=== PATIENT | female | born 1960 | race Caucasian/White ===

== ENCOUNTER → 2020-06-07 11:22 | Outpatient (CLI) | payer BC, SELFPAY ==
--- NOTE | ~2020-06-07 | MM_ITS ---
EXAMINATION: MM screening [facility] BI w alexandru HISTORY: Screening mammogram TECHNIQUE: Craniocaudal and mediolateral oblique 3-D tomosynthesis images were obtained and synthetic 2-D images were generated. CAD analysis was submitted and interpreted. COMPARISON: 05/06/2019, 01/06/2018, 10/09/2016 BREAST PARENCHYMAL COMPOSITION: There are scattered areas of fibroglandular density. FINDINGS: RIGHT BREAST: A mass is present in the middle third of the outer breast 5 cm from the nipple. No susp icious calcification is identified. LEFT BREAST: There is no evidence of suspicious mass, calcification, or architectural distortion to s uggest malignancy. There has been no significant interval change. IMPRESSION: 1. Right breast mass. 2. Additional mammographic views and possible breast ultrasound are recommended. BI-RADS Category 0: Incomplete: Needs additional imaging evaluation. Reviewed, dictated and finalized at location A. IMPRESSION: 1. Right breast mass. 2. Additional mammographic views and possible breast ultrasound are recommended . BI-RADS Category 0: Incomplete: Needs additional imaging evaluation.
== END ==
PROVIDERS: Visit Provider Nurse Practitioner
DX: Z12.31 Encounter for screening mammogram for malignant neoplasm of breast (principal); R92.8 Other abnormal and inconclusive findings on diagnostic imaging of breast
CPT/HCPCS: 77063; 77067

== ENCOUNTER → 2020-06-20 09:54 | Outpatient (CLI) | payer BC, SELFPAY ==
--- NOTE | ~2020-06-20 | MMUS_ITS ---
EXAMINATION: MM diagnostic mammo unilat RT, US breast RT limited HISTORY: Mammographic mass reported in middle third of outer breast TECHNIQUE: Additional 3-D tomosynthesis images of the right breast were performed and synthetic 2-D i mages were generated. CAD analysis was submitted and interpreted. High resolution targeted right m[address] st ultrasound was performed. COMPARISON: 06/07/2020 bilateral digital screening mammogram FINDINGS: MAMMOGRAPHIC FINDINGS: There is a circumscribed 4 mm low-density opacity with benign mammographic features in the lower oute r quadrant of the right breast. ULTRASOUND: A 4 mm sonolucency is confirmed at 8:00 3 cm from the nipple. This is consistent with a simple cyst. IMPRESSION: 1. Benign 4 mm cyst at 8:00 3 cm from nipple 2. No mammographic evidence of malignancy 3. Routine mammographic screening is recommended. BI-RADS Category 2: Benign finding(s). Reviewed, dictated and finalized at location A. IMPRESSION: 1. Benign 4 mm cyst at 8:00 3 cm from nipple 2. No mammographic evidence of malignancy 3. Routine mammographic screening is recommended. BI-RADS Category 2: Benign finding(s).
== END ==
PROVIDERS: PCP Internal Medicine Infectious Disease; Visit Provider Obstetrics & Gynecology Gynecology
DX: R92.8 Other abnormal and inconclusive findings on diagnostic imaging of breast (principal)
CPT/HCPCS: 76642; 77065

== ENCOUNTER → 2021-06-13 13:36 | Outpatient (CLI) | payer BC, SELFPAY ==
--- NOTE | ~2021-06-13 | DEXA_ITS ---
Bone Density Report Name: Susan Gamez Age: 61 Sex: Female Ethnicity: White Date of : 1960 Indication: osteopenia; height loss; asthma or emphysema; hysterectomy; postmenopausal Referring Provider: Bailey, Luciana Study: Bone densitometry was performed. Exam Date: June 13, 2021 Accession number: [id number] Bone Density: Region BMD T-score Z-score Classification AP Spine (L1-L4) 0.890 -1.4 0.2 Osteopenia Femoral Neck (Left) 0.624 -2.0 -0.6 Osteopenia Total Hip (Left) 0.721 -1.8 -0.7 Osteopenia Femoral Neck (Right) 0.614 -2.1 -0.7 Osteopenia Total Hip (Right) 0.730 -1.7 -0.6 Osteopenia Total Hip Mean 0.726 -1.8 -0.7 Osteopenia World Health Organization criteria for BMD impression classify patients as: Normal (T-score at or above -1.0), Osteopenia (T-score between -1.0 and -2.5), or Osteoporosis (T-score at or below -2.5). 10-year Fracture Risk(1): Major Osteoporotic Fracture 10% Hip Fracture 1.4% Reported Risk Factors: [place] (), Neck BMD=0.614, BMI=28.5 (1) FRAX(R) Version 3.08. Fracture probability calculated for an untreated patient. Fracture probability may be lower if the patient has received treatment. Previous Exams: Region Exam Age BMD T-score BMD Change BMD Change Date g/cm2 vs Baseline vs Previous AP Spine(L1-L4) 06/13/2021 61 0.890 -1.4 0.101* -0.003 05/06/2019 58 0.894 -1.4 0.105* 0.105* 10/09/2016 56 0.789 -2.3 Total Hip(Left) 06/13/2021 61 0.721 -1.8 0.041* 0.030* 05/06/2019 58 0.691 -2.1 0.011 0.011 10/09/2016 56 0.681 -2.1 Total Hip(Right) 06/13/2021 61 0.730 -1.7 0.051* 0.032* 05/06/2019 58 0.698 -2.0 0.019 0.019 10/09/2016 56 0.679 -2.2 *Denotes significance at 95% confidence level, LSC for AP Spine = 0.022 g/cm2, LSC for Total Hip = 0.027 g/cm2 Clinical Information Provided by Patient: Has used the following medications: Vitamin D, Calcium Has the following medical conditions: Asthma or Emphysema, Hysterectomy, COPD Patient maximum height was 62 Menopause Age: 45 No regular weight bearing exercise Does not regularly consume dairy products Drinks caffeinated beverages Onset of menses at age 11 Number of children 6 Impression: The patient has low bone mass, based on the Right Femoral Neck T-score. The patient has an estimated ten-year
--- NOTE | ~2021-06-13 | MM_ITS ---
EXAMINATION: MM screening [facility] BI w alexandru HISTORY: Screening TECHNIQUE: Craniocaudal and mediolateral oblique 3-D tomosynthesis images were obtained and synthetic 2-D images were generated. CAD analysis was submitted and interpreted. COMPARISON: Comparison to multiple prior studies sequentially, with oldest reviewed study dated 09/24. BREAST PARENCHYMAL COMPOSITION: There are scattered areas of fibroglandular density. FINDINGS: Stable benign right breast mass, mid outer aspect, previously described as cysts by ultraso und. There is no evidence of suspicious mass, calcification, or architectural distortion to suggest m alignancy in either breast. There has been no suspicious interval change. IMPRESSION: 1. No mammographic evidence of malignancy. 2. Recommend routine screening mammography in one year. BI-RADS Category 2: Benign finding(s). Reviewed, dictated and finalized at location A.
== END ==
PROVIDERS: PCP Internal Medicine Infectious Disease; Visit Provider Nurse Practitioner
DX: Z12.31 Encounter for screening mammogram for malignant neoplasm of breast (principal); M85.88 Other specified disorders of bone density and structure, other site; M85.851 Other specified disorders of bone density and structure, right thigh; M85.852 Other specified disorders of bone density and structure, left thigh
CPT/HCPCS: 77063; 77067; 77080

== ENCOUNTER → 2022-07-08 12:29 | Outpatient (CLI) | payer OTHER, SELFPAY ==
--- NOTE | ~2022-07-08 | MM_ITS ---
EXAMINATION: MM screening [facility] BI w alexandru HISTORY: Screening mammogram TECHNIQUE: Craniocaudal and mediolateral oblique 3-D tomosynthesis images were obtained and synthetic 2-D images were generated. CAD analysis was submitted and interpreted. COMPARISON: 06/13/2021 bilateral screening mammogram 06/20/2020 diagnostic right mammogram and limited right breast ultrasound 06/07/2020 bilateral screening mammogram. BREAST PARENCHYMAL COMPOSITION: The breasts are almost entirely fatty. FINDINGS: There is no evidence of suspicious mass, calcification, or architectural distortion to sugg est malignancy in either breast. There has been no suspicious interval change. IMPRESSION: 1. No mammographic evidence of malignancy. 2. Recommend routine screening mammography in one year. BI-RADS Category 1: Negative Reviewed, dictated and finalized at location A.
== END ==
PROVIDERS: PCP Internal Medicine Infectious Disease; Visit Provider Nurse Practitioner
DX: Z12.31 Encounter for screening mammogram for malignant neoplasm of breast (principal)
CPT/HCPCS: 77063; 77067

== ENCOUNTER → 2023-08-13 11:02 | Outpatient (CLI) | payer MEDICARE, OTHER, SELFPAY ==
--- NOTE | ~2023-08-13 | DEXA_ITS ---
Bone Density Report Name: JACEK ROBLES Age: 63 Sex: Female Ethnicity: White Date of : 1960 Indication: osteopenia; height loss; asthma or emphysema; hysterectomy; postmenopausal Referring Provider: Bailey, Luciana Study: Bone densitometry was performed. Exam Date: August 13, 2023 Accession number: [id number] Bone Density: Region BMD T-score Z-score Classification AP Spine (L1-L4) 0.897 -1.4 0.4 Osteopenia Femoral Neck (Left) 0.602 -2.2 -0.7 Osteopenia Total Hip (Left) 0.733 -1.7 -0.5 Osteopenia Femoral Neck (Right) 0.628 -2.0 -0.5 Osteopenia Total Hip (Right) 0.719 -1.8 -0.6 Osteopenia Total Hip Mean 0.726 -1.8 -0.6 Osteopenia World Health Organization criteria for BMD impression classify patients as: Normal (T-score at or above -1.0), Osteopenia (T-score between -1.0 and -2.5), or Osteoporosis (T-score at or below -2.5). 10-year Fracture Risk(1): Major Osteoporotic Fracture 11% Hip Fracture 1.8% Reported Risk Factors: [place] (), Neck BMD=0.602, BMI=30.4 (1) FRAX(R) Version 3.08. Fracture probability calculated for an untreated patient. Fracture probability may be lower if the patient has received treatment. Previous Exams: Region Exam Age BMD T-score BMD Change BMD Change Date g/cm2 vs Baseline vs Previous AP Spine(L1-L4) 08/13/2023 63 0.897 -1.4 0.108* 0.006 06/13/2021 61 0.890 -1.4 0.101* -0.003 05/06/2019 58 0.894 -1.4 0.105* 0.105* 10/09/2016 56 0.789 -2.3 Total Hip(Left) 08/13/2023 63 0.733 -1.7 0.052* 0.011 06/13/2021 61 0.721 -1.8 0.041* 0.030* 05/06/2019 58 0.691 -2.1 0.011 0.011 10/09/2016 56 0.681 -2.1 Total Hip(Right) 08/13/2023 63 0.719 -1.8 0.040* -0.012 06/13/2021 61 0.730 -1.7 0.051* 0.032* 05/06/2019 58 0.698 -2.0 0.019 0.019 10/09/2016 56 0.679 -2.2 *Denotes significance at 95% confidence level, LSC for AP Spine = 0.022 g/cm2, LSC for Total Hip = 0.027 g/cm2 Clinical Information Provided by Patient: Has used the following medications: Calcium Has the following medical conditions: Asthma or Emphysema, Hysterectomy, COPD Patient maximum height was 62.5 Menopause Age: 45 No regular weight bearing exercise Does not regularly consume dairy products Drinks caffeinated beverages Onset of menses at age 11 Number of children 6
--- NOTE | ~2023-08-13 | MM_ITS ---
EXAMINATION: MM screening [facility] BI w alexandru HISTORY: Screening TECHNIQUE: Craniocaudal and mediolateral oblique 3-D tomosynthesis images were obtained and synthetic 2-D images were generated. CAD analysis was submitted and interpreted. COMPARISON: Comparison to multiple prior studies sequentially, with oldest reviewed study dated 01/06. BREAST PARENCHYMAL COMPOSITION: There are scattered areas of fibroglandular density. FINDINGS: There is no evidence of suspicious mass, calcification, or architectural distortion to sugg est malignancy in either breast. There has been no suspicious interval change. IMPRESSION: 1. No mammographic evidence of malignancy. 2. Recommend routine screening mammography in one year. BI-RADS Category 1: Negative Reviewed, dictated and finalized at location A.
== END ==
PROVIDERS: PCP Internal Medicine Infectious Disease; Visit Provider Nurse Practitioner
DX: Z12.31 Encounter for screening mammogram for malignant neoplasm of breast (principal); Z13.820 Encounter for screening for osteoporosis; M85.88 Other specified disorders of bone density and structure, other site; M85.852 Other specified disorders of bone density and structure, left thigh; M85.851 Other specified disorders of bone density and structure, right thigh
CPT/HCPCS: 77063; 77067; 77080

== ENCOUNTER 2024-08-16 11:22 | Outpatient (CLI) | payer MEDICARE, OTHER, SELFPAY ==
--- NOTE | ~2024-08-16 | MM_ITS ---
EXAMINATION: MM screening [facility] BI w alexandru HISTORY: Screening TECHNIQUE: Craniocaudal and mediolateral oblique 3-D tomosynthesis images were obtained and synthetic 2-D images were generated. CAD analysis was submitted and interpreted. COMPARISON: Comparison to multiple prior studies sequentially, with oldest reviewed study dated 05/06. BREAST PARENCHYMAL COMPOSITION: Not dense: There are scattered areas of fibroglandular density. FINDINGS: There is no evidence of suspicious mass, calcification, or architectural distortion to sugg est malignancy in either breast. There has been no suspicious interval change. IMPRESSION: 1. No mammographic evidence of malignancy. 2. Recommend routine screening mammography in one year. BI-RADS Category 1: Negative Reviewed, dictated and finalized at location B.
== END 2024-08-16 11:23 | disposition home or self-care (01) ==
LOC: MICIMG 11:23
PROVIDERS: PCP Internal Medicine Infectious Disease; Visit Provider Nurse Practitioner
DX: Z12.31 Encounter for screening mammogram for malignant neoplasm of breast (principal)
CPT/HCPCS: 77063; 77067

== ENCOUNTER 2024-08-25 01:19 | Day surgery (SDC) | payer MEDICARE, OTHER, SELFPAY ==
[2024-08-03 12:47] VITALS: BMI 30.2
--- NOTE | 2024-08-23 12:28 | PM.IMHP ---
H&P: HPI History of Present Illness Date/Time: 08/23/24 12:28 Chief Complaint: patient with a family history of colorectal cancer , here for screening in a high risk patient. [facility] Past Medical History Medical History (Updated 08/25/24 @ 08:41 by Bob Moody MD) COPD (chronic obstructive pulmonary disease) HTN (hypertension) Overweight Surgical History Surgical History (Updated 08/25/24 @ 07:00 by Malachi Olsen MD) S/P cervical spinal fusion Social History Social History Years smoked: 35 Smoking status: Former smoker Tobacco type: cigarettes Alcohol intake: current Drinks per week: 7 Alcohol use details: ONE GLASS WINE DAILY Substance use: never Substance use type: does not use Living arrangements: with family Spiritual care concerns: No Meds Home Medications and Allergies Home Medications Medication Instructions Recorded Confirmed Type amlodipine 5 mg tablet 5 mg PO DAILY 08/03/24 08/25/24 History cetirizine 10 mg tablet (Zyrtec) 10 mg PO DAILY 08/03/24 08/25/24 History fluticasone 250 mcg-salmeterol 50 1 inh inhalation BID 08/03/24 08/25/24 History mcg/dose blistr powdr for inhalation (Wixela Inhub) fluticasone propionate 50 1 spray intranasal BID 08/03/24 08/25/24 History mcg/actuation nasal spray,suspension meloxicam 15 mg tablet 15 mg PO DAILY 08/03/24 08/25/24 History sertraline 100 mg tablet 100 mg PO DAILY 08/03/24 08/25/24 History tiotropium bromide 18 mcg capsule 1 cap inhalation DAILY 08/03/24 08/25/24 History with inhalation device (Spiriva with HandiHaler) Allergies Allergy/AdvReac Type Severity Reaction Status Date / Time Penicillins Allergy Severe HIVES Verified 08/25/24 06:21 codeine Allergy Intermediate NAUSEA Verified 08/25/24 06:21 AFFECTS VISION meperidine Allergy Intermediate NAUSEA Verified 08/25/24 06:21 AFFECTS VISION morphine Allergy Mild Itching Verified 08/25/24 06:21 tramadol Allergy Mild NAUSE Verified 08/25/24 06:21 AFFECTS VISION lactose AdvReac Intermediate Gastrointestinal Verified 08/25/24 06:21 Upset Exam Narrative: Within normal limits Assessment and Plan Assessment and plan (1) Screening for malignant neoplasm of colon: Code(s): Z12.11 - Encounter for screening for malignant neoplasm of colon Status: Acute Plan Patient deemed a good candidate for colonoscopy , will proceed.
--- NOTE | 2024-08-24 17:01 | P.HP_ITS ---
H&P: HPI History of Present Illness Date/Time: 08/24/24 17:01 [facility] Past Medical History Medical History (Updated 08/25/24 @ 07:00 by Malachi Olsen MD) COPD (chronic obstructive pulmonary disease) HTN (hypertension) Overweight Surgical History Surgical History (Updated 08/25/24 @ 07:00 by Malachi Olsen MD) S/P cervical spinal fusion Social History Social History Years smoked: 35 Smoking status: Former smoker Tobacco type: cigarettes Alcohol intake: current Drinks per week: 7 Alcohol use details: ONE GLASS WINE DAILY Substance use: never Substance use type: does not use Living arrangements: with family Spiritual care concerns: No Meds Home Medications and Allergies Home Medications Medication Instructions Recorded Confirmed Type amlodipine 5 mg tablet 5 mg PO DAILY 08/03/24 08/25/24 History cetirizine 10 mg tablet (Zyrtec) 10 mg PO DAILY 08/03/24 08/25/24 History fluticasone 250 mcg-salmeterol 50 1 inh inhalation BID 08/03/24 08/25/24 History mcg/dose blistr powdr for inhalation (Wixela Inhub) fluticasone propionate 50 1 spray intranasal BID 08/03/24 08/25/24 History mcg/actuation nasal spray,suspension meloxicam 15 mg tablet 15 mg PO DAILY 08/03/24 08/25/24 History sertraline 100 mg tablet 100 mg PO DAILY 08/03/24 08/25/24 History tiotropium bromide 18 mcg capsule 1 cap inhalation DAILY 08/03/24 08/25/24 History with inhalation device (Spiriva with HandiHaler) Allergies Allergy/AdvReac Type Severity Reaction Status Date / Time Penicillins Allergy Severe HIVES Verified 08/25/24 06:21 codeine Allergy Intermediate NAUSEA Verified 08/25/24 06:21 AFFECTS VISION meperidine Allergy Intermediate NAUSEA Verified 08/25/24 06:21 AFFECTS VISION morphine Allergy Mild Itching Verified 08/25/24 06:21 tramadol Allergy Mild NAUSE Verified 08/25/24 06:21 AFFECTS VISION lactose AdvReac Intermediate Gastrointestinal Verified 08/25/24 06:21 Upset
[2024-08-25 06:15] VITALS: BP 133/74; PULSE 62; RESP 16; TEMP 36.1; O2SAT 99
[2024-08-25 06:24] VITALS: BMI 29.8
[2024-08-25] MEDS: LACTATED RINGERS 1,000 ML 150 ML IV CONT (06:35)
--- NOTE | 2024-08-25 07:00 | P.PNAN_ITS ---
Anes - Initial Pre Proc Eval Procedure: Operation Date: 08/25/24 07:30 Proposed Procedures p Screening Colonoscopy - Bob Moody MD Date/Time: 08/25/24 07:00 Surgeon: Bob Moody MD Pre Op Diagnosis: family history of cancer Patient Data Age: 64 Gender: F Height: 1.57 m Weight: 74.1 kg Allergies Allergy/AdvReac Type Severity Reaction Status Date / Time Penicillins Allergy Severe HIVES Verified 08/25/24 06:21 codeine Allergy Intermediate NAUSEA Verified 08/25/24 06:21 AFFECTS VISION meperidine Allergy Intermediate NAUSEA Verified 08/25/24 06:21 AFFECTS VISION morphine Allergy Mild Itching Verified 08/25/24 06:21 tramadol Allergy Mild NAUSE Verified 08/25/24 06:21 AFFECTS VISION lactose AdvReac Intermediate Gastrointestinal Verified 08/25/24 06:21 Upset Home Medications Medication Instructions Recorded Confirmed Type amlodipine 5 mg tablet 5 mg PO DAILY 08/03/24 08/25/24 History cetirizine 10 mg tablet (Zyrtec) 10 mg PO DAILY 08/03/24 08/25/24 History fluticasone 250 mcg-salmeterol 50 1 inh inhalation BID 08/03/24 08/25/24 History mcg/dose blistr powdr for inhalation (Wixela Inhub) fluticasone propionate 50 1 spray intranasal BID 08/03/24 08/25/24 History mcg/actuation nasal spray,suspension meloxicam 15 mg tablet 15 mg PO DAILY 08/03/24 08/25/24 History sertraline 100 mg tablet 100 mg PO DAILY 08/03/24 08/25/24 History tiotropium bromide 18 mcg capsule 1 cap inhalation DAILY 08/03/24 08/25/24 History with inhalation device (Spiriva with HandiHaler) Patient hx anesthesia problems: none Family hx anesthesia problems: none Results Review: All pre-operative results and documents have been reviewed as part of the pre- operative evaluation. [facility] Past Medical History Medical History (Updated 08/25/24 @ 07:00 by Malachi Olsen MD) COPD (chronic obstructive pulmonary disease) HTN (hypertension) Overweight Surgical History Surgical History (Updated 08/25/24 @ 07:00 by Malachi Olsen MD) S/P cervical spinal fusion Social History Social History Years smoked: 35 Smoking status: Former smoker Tobacco type: cigarettes Alcohol intake: current Drinks per week: 7 Alcohol use details: ONE GLASS WINE DAILY Substance use: never Substance use type: does not use Living arrangements: with family Spiritual care concerns: No Anes - Eval Final PreProcedure Day of Procedure 08/25/24 07:00 Patient weight: overweight Heart: regular rate and rhythm Lungs: clear to auscultation Airway: Mallampati scale class II Neurological: alert and oriented Last oral intake: >/= 8 hours ASA classification: III Emergent: no Anesthetic plan: proceed Anesthesia type and monitoring: general GIVS and standard monitoring Results Review: All pre-operative results and documents have been reviewed as part of the pre- operative evaluation. Informed Consent: The patient's anesthetic plan and its attendant risks and benefits were discussed with the patient/family/POA. Questions were solicited and answers provided to the satisfaction of the patient/family/POA.
--- NOTE | 2024-08-25 07:26 | P.HP_ITS ---
H&P: HPI History of Present Illness Date/Time: 08/25/24 07:26 Chief Complaint: Patient with that family history of colorectal cancer, her father of it many years ago. She has had already 2 colonoscopies, and there found polyps. This is her screening colonoscopy for high risk patient. [facility] Past Medical History Medical History (Updated 08/25/24 @ 07:00 by Malachi Olsen MD) COPD (chronic obstructive pulmonary disease) HTN (hypertension) Overweight Surgical History Surgical History (Updated 08/25/24 @ 07:00 by Malachi Olsen MD) S/P cervical spinal fusion Social History Social History Years smoked: 35 Smoking status: Former smoker Tobacco type: cigarettes Alcohol intake: current Drinks per week: 7 Alcohol use details: ONE GLASS WINE DAILY Substance use: never Substance use type: does not use Living arrangements: with family Spiritual care concerns: No Meds Home Medications and Allergies Home Medications Medication Instructions Recorded Confirmed Type amlodipine 5 mg tablet 5 mg PO DAILY 08/03/24 08/25/24 History cetirizine 10 mg tablet (Zyrtec) 10 mg PO DAILY 08/03/24 08/25/24 History fluticasone 250 mcg-salmeterol 50 1 inh inhalation BID 08/03/24 08/25/24 History mcg/dose blistr powdr for inhalation (Wixela Inhub) fluticasone propionate 50 1 spray intranasal BID 08/03/24 08/25/24 History mcg/actuation nasal spray,suspension meloxicam 15 mg tablet 15 mg PO DAILY 08/03/24 08/25/24 History sertraline 100 mg tablet 100 mg PO DAILY 08/03/24 08/25/24 History tiotropium bromide 18 mcg capsule 1 cap inhalation DAILY 08/03/24 08/25/24 History with inhalation device (Spiriva with HandiHaler) Allergies Allergy/AdvReac Type Severity Reaction Status Date / Time Penicillins Allergy Severe HIVES Verified 08/25/24 06:21 codeine Allergy Intermediate NAUSEA Verified 08/25/24 06:21 AFFECTS VISION meperidine Allergy Intermediate NAUSEA Verified 08/25/24 06:21 AFFECTS VISION morphine Allergy Mild Itching Verified 08/25/24 06:21 tramadol Allergy Mild NAUSE Verified 08/25/24 06:21 AFFECTS VISION lactose AdvReac Intermediate Gastrointestinal Verified 08/25/24 06:21 Upset Exam Narrative: within normal limits Assessment and Plan Assessment and plan Plan patient deemed a good candidate for colonoscopy, will proceed
[2024-08-25 07:50] VITALS: BP 101/65; PULSE 68; RESP 23; O2SAT 95
[2024-08-25 08:00] VITALS: BP 118/67; PULSE 61; RESP 14; O2SAT 96
[2024-08-25 08:10] VITALS: BP 139/86; PULSE 57; RESP 20; O2SAT 100
== END 2024-08-25 08:27 | disposition home or self-care (01) ==
PROVIDERS: PCP Internal Medicine Infectious Disease; Visit Provider Internal Medicine Gastroenterology
PROC: 0DJD8ZZ Inspection of Lower Intestinal Tract, Via Natural or Artificial Opening Endoscopic (ICD-10-PCS; CPT 45378; principal; 2024-08-25 07:30)
DX: Z12.11 Encounter for screening for malignant neoplasm of colon (principal); K57.30 Diverticulosis of large intestine without perforation or abscess without bleeding; I10 Essential (primary) hypertension; J44.9 Chronic obstructive pulmonary disease, unspecified; Z79.51 Long term (current) use of inhaled steroids; Z98.890 Other specified postprocedural states; Z98.1 Arthrodesis status; Z87.891 Personal history of nicotine dependence; Z80.0 Family history of malignant neoplasm of digestive organs
CPT/HCPCS: G0105; J2003; J2704; J7120

== ENCOUNTER 2025-08-18 12:54 | Outpatient (CLI) | payer MEDICARE, OTHER, SELFPAY ==
--- NOTE | ~2025-08-18 | MM_ITS ---
EXAMINATION: MM screening [facility] BI w alexandru HISTORY: Screening TECHNIQUE: Craniocaudal and mediolateral oblique 3-D tomosynthesis images were obtained and synthetic 2-D images were generated. CAD analysis was submitted and interpreted. COMPARISON: 08/13/2023 BREAST PARENCHYMAL COMPOSITION: Not Dense: The breasts are almost entirely fatty. FINDINGS: There is no evidence of suspicious mass, calcification, or architectural distortion to suggest malignancy in either breast. [There has been no significant interval change. IMPRESSION: 1. No mammographic evidence of malignancy. Recommend routine screening mammography in one year. BI-RADS Category 1: Negative Reviewed, dictated, and finalized at Location A. Reviewed, dictated and finalized at location Q. IMPRESSION: 1. No mammographic evidence of malignancy. Recommend routine screening mammogra phy in one year. BI-RADS Category 1: Negative
== END 2025-08-18 12:55 | disposition home or self-care (01) ==
PROVIDERS: PCP Obstetrics & Gynecology Gynecology; Visit Provider Internal Medicine Infectious Disease
DX: Z12.31 Encounter for screening mammogram for malignant neoplasm of breast (principal)
CPT/HCPCS: 77063; 77067

== ENCOUNTER 2025-09-26 12:36 | Outpatient (CLI) | payer MEDICARE, OTHER, SELFPAY ==
--- NOTE | ~2025-09-26 | DEXA_ITS ---
Bone Density Report Name: JACEK ARAGON Age: 65 Sex: Female Ethnicity: White Date of : 1960 Indication: osteopenia; height loss; inflammatory bowel disease; hysterectomy; Referring Provider: VIVI STILL Study: Bone densitometry was performed. Exam Date: September 26, 2025 Accession number: [id number] Bone Density: Region BMD T-score Z-score Classification AP Spine(L1-L4) 0.841 -1.9 0.1 Osteopenia Femoral Neck (Left) 0.580 -2.4 -0.8 Osteopenia Total Hip (Left) 0.708 -1.9 -0.6 Osteopenia Femoral Neck (Right) 0.607 -2.2 -0.5 Osteopenia Total Hip (Right) 0.717 -1.8 -0.5 Osteopenia Total Hip Mean 0.713 -1.9 -0.6 Osteopenia World Health Organization criteria for BMD impression classify patients as: Normal (T-score at or above -1.0), Osteopenia (T-score between -1.0 and -2.5), or Osteoporosis (T-score at or below -2.5). 10-year Fracture Risk(1): Major Osteoporotic Fracture 13% Hip Fracture 2.5% Reported Risk Factors: [place] (), Neck BMD=0.580, BMI=30.4 (1) FRAX(R) Version 3.08. Fracture probability calculated for an untreated patient. Fracture probability may be lower if the patient has received treatment. Previous Exams: -- Region Exam Age BMD T-score BMD Change BMD Change Date g/cm2 vs Baseline vs Previous -- AP Spine (L1-L4) 09/26/2025 65 0.841 -1.9 6.6%* -6.2%* 08/13/2023 63 0.897 -1.4 13.7%* 0.7% 06/13/2021 61 0.890 -1.4 12.9%* -0.4% 05/06/2019 58 0.894 -1.4 13.3%* 13.3%* 10/09/2016 56 0.789 -2.3 Total Hip(Left) 09/26/2025 65 0.708 -1.9 4.0%* -3.3% 08/13/2023 63 0.733 -1.7 7.6%* 1.6% 06/13/2021 61 0.721 -1.8 6.0%* 4.3%* 05/06/2019 58 0.691 -2.1 1.6% 1.6% 10/09/2016 56 0.681 -2.1 Total Hip(Right) 09/26/2025 65 0.717 -1.8 5.6%* -0.2% 08/13/2023 63 0.719 -1.8 5.8%* -1.6% 06/13/2021 61 0.730 -1.7 7.5%* 4.6%* 05/06/2019 58 0.698 -2.0 2.8% 2.8% 10/09/2016 56 0.679 -2.2 -- *Denotes significance at 95% confidence level, LSC for AP Spine = 0.022 g/cm2, LSC for Total Hip = 0.027 g/cm2 Clinical Information Provided by Patient: Has used the following medications: Vitamin D Has the following medical conditions: Inflammatory bowel diseases, Hysterectomy Patient maximum height was 63 Menopause Age: 45 No regular weight bearing exercise Does not regularly consume dairy products Drinks caffeinated beverages Onset of menses at age 10 Number of children 6 Impression: The patient has low bone mass, based on the Left Femoral Neck T-score. The patient has an estimated ten-year risk of hip fracture of 2.5% and an estimated ten-year risk of major fracture of 13%, based on the WHO FRAX algorithm. The BMD for the AP Spine (L1-L4) decreased, changing by -6.2% since the last DXA exam. Discussion: BONE DENSITY IS LOW AT ONE OR MORE SKELETAL SITES. This patient's lowest T-score is low at one or more skeletal sites. It meets the World Health Organization's (WHO) criteria for ?low bone mass? (T-score between -1.0 and -2.5). The patient's 10-year risk of fracture as calculated by FRAX is less than the threshold where pharmacological therapy is recommended by the National Osteoporosis Foundation (NOF). However, all treatment decisions require clinical judgment and consideration of individual patient factors, including patient preferences, comorbidities, previous drug use, risk factors not captured in the FRAX model (e.g., frailty, falls, vitamin D deficiency, increased bone turnover, interval significant decline in bone density) and possible under or overestimation of fracture risk by FRAX. The patient should follow a healthful lifestyle (good nutrition with adequate calcium and vitamin D, and appropriate weight-bearing exercise). Follow-Up: Consider repeating this study in 2 years to reassess this patient's status, or sooner if there is some new clinical indication. Reported by: NATHANIEL on 09/26/2025 12:58:00 PM. Reviewed, dictated and finalized at location A.
== END 2025-09-26 12:37 | disposition home or self-care (01) ==
PROVIDERS: PCP Internal Medicine Infectious Disease; Visit Provider Obstetrics & Gynecology Gynecology
DX: Z78.0 Asymptomatic menopausal state (principal); M85.88 Other specified disorders of bone density and structure, other site; M85.852 Other specified disorders of bone density and structure, left thigh; M85.851 Other specified disorders of bone density and structure, right thigh
CPT/HCPCS: 77080